=== PATIENT | female | born 1935 | race Caucasian/White ===

== ENCOUNTER 2016-10-02 18:30 | Inpatient (IN) | payer MEDICARE, OTHER ==
[~2016-10-02] VITALS: Ht 172.7 cm; Wt 54.5 kg
--- NOTE | ~2016-10-02 | CON ---
[place], [place] REPORT OF CONSULTATION NAME: JENISE PATEL [facility] [id number] UNIT #: [id number] ROOM: 524 DOCTOR: DANIELLE HUGHES ED.D (DAYA) BIRTHDATE: [birth year] DOS: 10/04/2016 HISTORY OF PRESENT ILLNESS: The patient is 81-year-old female referred by the hospitalist for evaluation of her depression. At the present time, this patient is on the 5th floor at [facility]. She states she is , and has 4 children. One of her sons does live with her here in [place]. Her family physician is Dr. Howe and her medical history is pertinent for acute anemia, hypertension, hypercholesterolemia, atrial fibrillation and chronic kidney disease and depression. MEDICATIONS: Include aspirin, hydrochlorothiazide, Lasix, pravastatin, and zolpidem. She denies any substance abuse issues whatsoever. This patient was awake, alert and oriented in all 3 spheres, but appeared to be quite depressed. She states at times she feels like she wants to , but will do nothing to harm herself, but wishes she would just go to sleep and not wake up. I talked to her about antidepressant medications, but she stated she did not want to take any additional medications because she was taking enough medications at this time. I strongly encouraged her to increase her activities as tolerated outside the home. During her last visit, she refused any physical therapy but this time, she did agree to physical therapy, which would help her significantly to increase her mobility. She states she worked for nearly 30 years at [employer] in [facility] and feels that at this point in time, she is not a contributing member of society. She did, however reassert the fact that she is not suicidal and will never do anything to harm herself. DIAGNOSIS: Major depressive disorder, single episode. RECOMMENDATIONS: 1. The patient to follow up with Physical Therapy as recommended by her physician. 2. The patient to increase her activities outside her home. Thank you very much for this consult. DANIELLE HUGHES ED.D CM:CONSTR:REPORT OF CONSULTATION 1357 10/04/16 1618 interface
--- NOTE | ~2016-10-02 | CON ---
[place], [place] REPORT OF CONSULTATION NAME: JENISE PATEL UNIT #: [id number] ROOM: 524 DOCTOR: ESTUARDO ROPER MD BIRTHDATE: [birth year] DOS: 10/03/2016 GASTROENDOSCOPIC CONSULTATION REPORT HISTORY OF PRESENT ILLNESS: An 81-year-old patient, who has presented to the Emergency Room with falling episode and unable to ambulate with ease. Legs are not strong enough to carry her, she says. Meanwhile, she has been found to have anemia and I have been asked for assessment of the patient in this regard. PAST MEDICAL HISTORY: Associated with failure to thrive, anemia, hypertension and hypercholesterolemia. PAST SURGICAL HISTORY: Hysterectomy and cataracts. SOCIAL HISTORY: Nonsmoker and nonalcohol consumer. ALLERGIES: To no known medications. MEDICATIONS LIST: Reviewed. REVIEW OF SYSTEMS: GENERAL: Cannot be obtained from her reliably; however, most of the answers are no. No shortness of breath, no chest pain, no hematemesis and no hematochezia. PHYSICAL EXAMINATION: GENERAL: A relatively-frail lady. HEENT: Within normal limits. NECK: Supple. No thyromegaly and no cervical lymphadenopathy. CHEST: Symmetric anatomy, decreased air entry bilaterally. HEART: Normal sinus rhythm. No gallop, no murmur. ABDOMEN: Soft. No hepato-organomegaly. Bowel sounds present. No pulsatile mass. EXTREMITIES: No cyanosis, no pedal edema. NEUROLOGIC: Alert and slow orientation. IMPRESSION: Labs reviewed. Records reviewed. It was found that her hemoglobin and hematocrit were 6 and 21, microcytic indices. Comprehensive metabolic panel: Elevated BUN and creatinine at 48 and 2.04. GFR is less than 28. Liver function test is normal. Chest x-ray, mild chronic calcification, bibasilar. CBC differential again reconfirms the pathology of severe anemia. PLAN AND DISCUSSION: We have sent a message to nursing staff and to the family. Apparently, they do not want the anemia investigated despite the fact that the patient is guaiac positive and has hemoglobin of 6. Comfort measures. IV hydration as hopefully the renal insufficiency is going to respond as well. We are going to provide a soft diet with Ensure 1 can t.i.d. with each meal. OTHER ADJUNCTIVE DIAGNOSES: As outlined in paragraph of past medical history, hypercholesterolemia, hypertension, dementia and failure to thrive; all have been recognized. Difficulty in ambulation is noticed. Supportive management. [place], [place] REPORT OF CONSULTATION NAME: JENISE PATEL UNIT #: [id number] ROOM: 524 DOCTOR: ESTUARDO ROPER MD BIRTHDATE: [birth year] ESTUARDO ROPER MD CM:CONSTR:REPORT OF CONSULTATION 0951 10/03/16 1745 interface
[2016-10-02 18:30] VITALS: BP 149/40
[~2016-10-02 18:30] MED LIST: ASPIRIN ADULT L81 M1 PO; AVANDARYL 4 MG-1 TAB; CALCIUM 600 + V1 TA1; CLOPIDOGREL75 MG PO; COREG CR20 MG; COZAAR25 MG; DILTIAZEM CD300 MG; ESIDRIX25 MG; HYDROCHLOROTHIA25 M1 PO; IRON325 M1 PO; LISINOPRIL10 M1 PO; LISINOPRIL2.5 MG PO; LISINOPRIL20 MG PO; METANX 2.8 MG-21 TA1; METFORMIN HCL500 MG; POTASSIUM20 MEQ; PRAVACHOL20 MG PO; PRINIVIL20 MG PO; ZITHROMAX250 MG PO; ZOLPIDEM10 MG PO
[2016-10-02 19:06] LABS: BASO % 0.2 % (0.0-1.0); EOS # 0.3 10*3/uL (0.0-0.4); EOS % 3.1 % (1.0-4.0); HEMATOCRIT 21.3 % (37.0-47.0); HEMOGLOBIN 6.3 g/dl (12.0-16.0); LYMPH # 0.9 10*3/uL (1.3-4.4); LYMPH % 10.7 % (27.0-41.0); MEAN CELL VOLUME 83.9 fl (81.0-99.0); MEAN CORPUSCULAR HGB 24.8 pg (27.0-31.0); MEAN CORPUSCULAR HGB CONC 29.6 g/dl (33.0-37.0); MEAN PLATELET VOLUME 11.1 fl (9.6-12.3); MONO # 0.9 10*3/uL (0.1-1.0); MONO % 10.4 % (3.0-9.0); NEUT # 6.6 10*3/uL (2.3-7.9); NEUT % 75.4 % (47.0-73.0); PLATELET COUNT AUTOMATED 201 10*3/uL (130-400); RED BLOOD COUNT 2.54 10*6/uL (4.10-5.10); RED CELL DISTRI WIDTH 18.7 % (0-14.5); WHITE BLOOD COUNT 8.8 10*3/uL (4.8-10.8)
[2016-10-02] MEDS ORDERED: ZOLPIDEM TART10 MG PO (19:10)
[2016-10-02] MEDS ORDERED: HYDROCHLOROTHIA25 M1 PO (19:10)
[2016-10-02 19:23] LABS: ALBUMIN 3.6 gm/dl (3.1-4.5); BILIRUBIN, TOTAL 0.4 mg/dl (0.2-1.0); POTASSIUM 4.8 mmol/L (3.5-5.1)
[2016-10-02 19:25] VITALS: BP 133/39
[2016-10-02 20:00] VITALS: BP 130/50
[2016-10-02 21:00] VITALS: BP 107/38
[2016-10-02 21:20] VITALS: BP 135/46
[2016-10-02 23:18] LABS: BILIRUBIN NEGATIVE (NEGATIVE); BLOOD 3+ (NEGATIVE); CLARITY CLOUDY (CLEAR); COLOR YELLOW (YELLOW); GLUCOSE NEGATIVE (NEGATIVE); KETONE NEGATIVE (NEGATIVE); LEUKO ESTERASE 1+ (NEGATIVE); NITRITE NEGATIVE (NEGATIVE); PROTEIN TRACE (NEGATIVE); SPECIFIC GRAVITY 1.015 (1.005-1.030); UROBILINOGEN 0.2 E.U./dl (0.2-1.0)
[2016-10-02 23:24] LABS: EPITHELIAL CELLS 15-20; WBC 31-40 wbc/hpf (0-5)
[2016-10-02 23:25] LABS: BACTERIA 4+; URINE REFLEX COMMENT YES (NO)
[2016-10-03] VITALS (13 sets, daily range): BP systolic 118–146; BP diastolic 40–68
[2016-10-03 00:35] LABS: TROPONIN I 0.033 ng/ml (<0.045)
[2016-10-03 06:42] LABS: BASO % 0.3 % (0.0-1.0); EOS # 0.1 10*3/uL (0.0-0.4); EOS % 1.8 % (1.0-4.0); HEMATOCRIT 20.3 % (37.0-47.0); LYMPH # 0.9 10*3/uL (1.3-4.4); MEAN CELL VOLUME 85.7 fl (81.0-99.0); MEAN CORPUSCULAR HGB 25.3 pg (27.0-31.0); MEAN CORPUSCULAR HGB CONC 29.6 g/dl (33.0-37.0); MEAN PLATELET VOLUME 10.9 fl (9.6-12.3); MONO # 0.8 10*3/uL (0.1-1.0); MONO % 11.2 % (3.0-9.0); NEUT # 5.3 10*3/uL (2.3-7.9); NEUT % 74.4 % (47.0-73.0); PLATELET COUNT AUTOMATED 183 10*3/uL (130-400); RED BLOOD COUNT 2.37 10*6/uL (4.10-5.10); RED CELL DISTRI WIDTH 18.7 % (0-14.5); WHITE BLOOD COUNT 7.1 10*3/uL (4.8-10.8)
[2016-10-03 06:56] LABS: TROPONIN I 0.031 ng/ml (<0.045)
[2016-10-03 07:03] LABS: FREE T4 1.23 ng/dl (0.76-1.46); THYROID STIM HORMONE (HS) 1.87 uIU/ml (0.358-4.75)
[2016-10-03 07:19] LABS: INTERNATIONAL NORM RATIO 1.1 (2.0-3.5); PROTHROMBIN TIME 11.5 SECONDS (9.0-12.4)
[2016-10-03 07:59] LABS: FOLIC ACID > 24.00 ng/mL (>5.38)
[2016-10-03 12:33] LABS: CKMB 4.2 ng/ml (0.5-3.6); TROPONIN I 0.029 ng/ml (<0.045)
[2016-10-04] VITALS: BP 122/50
[2016-10-04 06:29] LABS: BASO % 0.4 % (0.0-1.0); EOS # 0.2 10*3/uL (0.0-0.4); LYMPH # 0.8 10*3/uL (1.3-4.4); LYMPH % 10.3 % (27.0-41.0); MEAN CELL VOLUME 87.8 fl (81.0-99.0); MEAN CORPUSCULAR HGB 26.6 pg (27.0-31.0); MEAN CORPUSCULAR HGB CONC 30.3 g/dl (33.0-37.0); MEAN PLATELET VOLUME 10.8 fl (9.6-12.3); MONO # 0.7 10*3/uL (0.1-1.0); MONO % 9.8 % (3.0-9.0); NEUT # 5.8 10*3/uL (2.3-7.9); NEUT % 77.1 % (47.0-73.0); NUCLEATED RED BLOOD CELL 0.4 % (0.0-0.0); PLATELET COUNT AUTOMATED 181 10*3/uL (130-400); RED BLOOD COUNT 3.68 10*6/uL (4.10-5.10); RED CELL DISTRI WIDTH 17.7 % (0-14.5); WHITE BLOOD COUNT 7.5 10*3/uL (4.8-10.8)
[2016-10-04 06:35] LABS: HEMATOCRIT 32.3 % (37.0-47.0); HEMOGLOBIN 9.8 g/dl (12.0-16.0)
[2016-10-04 06:51] LABS: POTASSIUM 4.5 mmol/L (3.5-5.1)
[2016-10-04 08:00] VITALS: BP 122/52
[2016-10-04] MEDS ORDERED: IRON325 M1 PO (09:32)
[2016-10-04 12:00] VITALS: BP 144/58
[2016-10-04 16:00] VITALS: BP 122/46
[2016-10-04 20:00] VITALS: BP 148/54
[2016-10-05] VITALS: BP 122/47
[2016-10-05 08:00] VITALS: BP 126/58
[2016-10-05 12:00] VITALS: BP 138/55
[2016-10-05] MEDS ORDERED: PANTOPRAZOLE SO40 MG PO (14:13)
[2016-10-05] MEDS ORDERED: ACETAMINOPHEN-H1 TA2 PO (14:13)
== END 2016-10-05 15:54 | disposition home health service (06) | DRG 377 ==
LOC: ED 18:30 → 5E 20:50 → EDHOLD 20:50 → 5E 21:08
PROVIDERS: Internal Medicine; Registered Nurse
DX: K92.2 Gastrointestinal hemorrhage, unspecified (principal); N17.0 Acute kidney failure with tubular necrosis; N39.0 Urinary tract infection, site not specified; N18.3 Chronic kidney disease, stage 3 (moderate); E78.5 Hyperlipidemia, unspecified; I12.9 Hypertensive chronic kidney disease with stage 1 through stage 4 chronic kidney disease, or unspecified chronic kidney disease; W19.XXXA Unspecified fall, initial encounter; R00.1 Bradycardia, unspecified; R73.9 Hyperglycemia, unspecified; F32.9 Major depressive disorder, single episode, unspecified; E87.8 Other disorders of electrolyte and fluid balance, not elsewhere classified; E78.00 Pure hypercholesterolemia, unspecified; I48.91 Unspecified atrial fibrillation; R62.7 Adult failure to thrive; R91.8 Other nonspecific abnormal finding of lung field; D64.9 Anemia, unspecified; Y93.89 Activity, other specified; Y92.091 Bathroom in other non-institutional residence as the place of occurrence of the external cause; Y99.8 Other external cause status; Z90.710 Acquired absence of both cervix and uterus; Z98.51 Tubal ligation status; Z79.82 Long term (current) use of aspirin; Z79.899 Other long term (current) drug therapy; Z98.49 Cataract extraction status, unspecified eye

== ENCOUNTER 2016-10-14 23:15 | Inpatient (IN) | payer MEDICARE, OTHER ==
[~2016-10-14] VITALS: Ht 167.6 cm; Wt 60.4 kg
--- NOTE | ~2016-10-14 | EKG ---
[place], [place] ELECTROCARDIOGRAM REPORT NAME: JENISE PATEL UNIT #: [id number] ROOM: 419 DOCTOR: SRAVAN HODGE MD BIRTHDATE: [birth year] DOS: 10/15/2016 TIME: 23:56. Atrial fibrillation with slow ventricular response, poor precordial R-wave progression, non-specific T-wave abnormalities. SRAVAN HODGE MD CM:EKGRPT:ELECTROCARDIOGRAM REPORT 1107 1146 SRAVAN HODGE MD
--- NOTE | ~2016-10-14 | EKG ---
[place], [place] ELECTROCARDIOGRAM REPORT NAME: JENISE PATEL UNIT #: [id number] ROOM: 419 DOCTOR: SRAVAN HODGE MD BIRTHDATE: [birth year] DOS: 10/15/2016 TIME: 07:30 a.m. Atrial fibrillation, poor precordial R-wave progression, non-specific T-wave abnormality, slow heart rate response, ____ abnormal electrocardiogram. SRAVAN HODGE MD CM:EKGRPT:ELECTROCARDIOGRAM REPORT 1107 1139 SRAVAN HODGE MD
--- NOTE | ~2016-10-14 | CON ---
[place], [place] REPORT OF CONSULTATION [id number] UNIT #: [id number] ROOM: 419 DOCTOR: SRAVAN HODGE MD BIRTHDATE: [birth year] DOS: 10/15/2016 REASON FOR CONSULTATION: Hypotension and dyspnea with atypical chest pain. HISTORY OF PRESENT ILLNESS: The patient is an 81-year-old woman who does have a long history of atrial fibrillation. She initially presented in May of 2011 with shortness of breath, facial asymmetry, and difficulty with speech. She was found to have a right basal ganglion stroke. She was in atrial fibrillation at that time and it was felt that the stroke was cardioembolic in origin. She was evaluated by Dr. Alexander Martin of the [facility], who noted that her heart rate was 59, even though she was not on any heart rate slowing medications. The patient declined transfer to a tertiary care center. Initially, she declined anticoagulation, but eventually was discharged on warfarin. This has subsequently been stopped. Please note that the patient is a totally inadequate historian and all of my information is obtained from nursing staff and the medical record. No family is available at this time. The patient has been in and out of the hospital on several occasions since then. She has been noted to have severe anemia. Hemoglobin was as low as 5.4 on 05/30/2016 and again was as low as 6.0 on 10/03/2016. The patient was evaluated by Dr. Campos who found heme-positive stools. The patient declined requests to evaluate her for a source of blood loss. She has received transfusions. She has also been seen by Psychiatry and is known to have severe depression. She has refused treatment for this. She does, however, indicate that she is not suicidal. She presented to the Emergency Room on this occasion late last evening with a sensation that she was dehydrated and was voiding more than she could drink. She did complain at the time of being very tired. Hemoglobin on admission was 9.4 and now is 8.1. She was given IV fluids, but has deteriorated since then. In the hospital, she has been noted to be bradycardic. Heart rates have been measured in the 30s. She was hypotensive as well. She has complained of left upper quadrant and left lower chest pain. She also has complained of cough and dyspnea. Because of her bradycardia, Cardiology was consulted. PAST MEDICAL HISTORY: Includes: 1. Presentation with basal ganglion stroke, 05/2011. 2. Atrial fibrillation with slow ventricular response, first documented 05/24/2011. The patient was not on any rate slowing medications at that time, but her heart rate was 59. 3. Essential hypertension. 4. Anxiety and depression. 5. History of medication noncompliance. 6. History of acute pancreatitis in 2006. 7. History of pneumonia in the distant past. 8. History of recurrent anemia. The patient's hemoglobin on 05/30/2016 was 5.4 with heme-positive stools. The patient declined evaluation. [place], [place] REPORT OF CONSULTATION NAME: JENISE PATEL UNIT #: [id number] ROOM: [facility] DOCTOR: SRAVAN HODGE MD BIRTHDATE: [birth year] MEDICATIONS: Prior to admission, clopidogrel 75 mg daily, hydrochlorothiazide 25 mg daily, [place] 5/325 one q. 4 hours p.r.n. back pain, lisinopril 10 mg per day, pantoprazole 40 mg per day, pravastatin 20 mg daily, and Ambien 10 mg at bedtime p.r.n. ALLERGIES: She has no known drug allergies. REVIEW OF SYSTEMS: The patient cannot give an adequate review of systems at this time. Her speech is garbled. She is hard of hearing. She denies chest pain, but does admit to a jabbing in her left upper quadrant or left lower chest area. FAMILY HISTORY: Both parents are . There is no available family history aside from that. SOCIAL HISTORY: The patient lives with family. She does not smoke or consume alcohol. PHYSICAL EXAMINATION: GENERAL: The patient is an elderly white female who is awake and alert. It is difficult to determine her level of orientation. She is lying almost flat in bed with oxygen in place. VITAL SIGNS: Pulse is 63 and irregularly irregular. Blood pressure is 130/112. Oxygen saturation is 98% with supplemental oxygen. She weighs 60.4 kg and has a body mass index of 21.5. HEENT: Normocephalic and atraumatic. Extraocular muscles are intact. Her oral mucosa is moist. Tongue is midline. NECK: Supple. She does have jugular distention to the angle of then jaw when lying at a 30-degree angle. Carotids are full. I heard no bruits. LUNGS: Respirations are somewhat labored. She has decreased breath sounds at the bases and basilar rales. CARDIOVASCULAR: Her heart has an irregularly irregular rhythm. She does have a grade 3/6 holosystolic murmur at the lower left sternal border radiating well into the axilla. No diastolic murmurs are present. The PMI is displaced slightly laterally. There is no precordial heave, lift, or thrill. ABDOMEN: Soft and normally active. There is no mass or tenderness. EXTREMITIES: Showed 2+ edema at the ankles. Pedal pulses were diminished, but palpable in the feet. LABORATORY DATA: I reviewed her electrocardiogram. It showed atrial fibrillation with a slow ventricular response. Heart rate was 43 despite the fact that she was on no rate slowing medications. She does have poor precordial R-wave progression and nonspecific T-wave flattening. Chest x-ray shows cardiomegaly with enlargement of the left cardiac border suggesting left atrial enlargement. She does have bilateral pleural effusions and pulmonary vascular congestion. White count is 6300, hemoglobin is 8.1, hematocrit 27.8, platelet count is 146,000. Sodium is 145, potassium 3.8, chloride 111, CO2 of 27, BUN 18, creatinine 0.96, calcium is 8.2 consistent with her albumin level of 3.0. MB is elevated at 5.3, but total CK has not been [place], [place] REPORT OF CONSULTATION NAME: JENISE PATEL UNIT #: [id number] ROOM: 419 DOCTOR: SRAVAN HODGE MD BIRTHDATE: [birth year] obtained. Troponin is measurable, but within normal limits at 0.031. TSH is normal at 1.68. IMPRESSION: 1. Conduction system disorder. The patient has a long history of atrial fibrillation with a slow ventricular response. In the hospital now, she has had a heart rate as low as mid 30s, but she did respond nicely to atropine. 2. Acute on chronic congestive heart failure, etiology not yet known. 3. Valvular heart disease. The patient does have mitral insufficiency on exam with an apparent enlarged left atrium on her chest x-ray. 4. Adult failure to thrive. 5. Persistent anemia with hemoglobins recently as low as 6. The patient does apparently have gastrointestinal blood loss, but has refused evaluation. 6. History of stroke from a cardioembolic source. The patient is not on long-term anticoagulation per her choice as far as I can tell from the chart. 7. History of depression. PLAN: We will diurese the patient. We will continue to monitor her. If her heart rate should fall again, I would put her on a dobutamine drip and titrate this to keep her heart rate above 60. I think that a long and sherman discussion has to be held with the patient and her family regarding long-term care goals. The patient has a history of refusing medical evaluation and care. She might feel better long-term once her other medical problems have been stabilized if she were to have a pacemaker placed; however, this does not appear to be her most acute problem at present, and if she is not willing or able to correct her other medical problems, then a pacemaker would not change her ultimate prognosis. For now, we will proceed as noted above and await further direction from her primary physicians and family. I thank the hospitalist group for asking our advice regarding her care. SRAVAN HODGE MD CM:CONSTR:REPORT OF CONSULTATION 0924 10/15/16 1033 interface
--- NOTE | ~2016-10-14 | EKG ---
[place], [place] ELECTROCARDIOGRAM REPORT NAME: JENISE PATEL UNIT #: [id number] ROOM: 419 DOCTOR: SRAVAN HODGE MD BIRTHDATE: [birth year] DOS: 10/15/2016 TIME: 12:31 a.m. Atrial fibrillation with controlled ventricular response, right axis deviation, poor precordial R-wave progression, non-specific ST-T wave changes, abnormal electrocardiogram. SRAVAN HODGE MD CM:EKGRPT:ELECTROCARDIOGRAM REPORT 1107 1149 SRAVAN HODGE MD
[~2016-10-14 23:15] MED LIST changes: +ACETAMINOPHEN-H1 TA2 PO; +PANTOPRAZOLE SO40 MG PO; +ZOLPIDEM TART10 MG PO
[2016-10-14 23:24] VITALS: BP 159/76
[2016-10-14] MEDS ORDERED: AMBIEN10 M1 PO (23:30)
[2016-10-14] MEDS ORDERED: HYDR25T PO (23:30)
[2016-10-14] MEDS ORDERED: PLAVIX75 M1 PO (23:31)
[2016-10-14] MEDS ORDERED: LISINOPRIL10 M1 PO (23:31)
[2016-10-15] VITALS (8 sets, daily range): BP systolic 119–167; BP diastolic 40–72
[2016-10-15 00:12] LABS: BASO % 0.3 % (0.0-1.0); EOS # 0.1 10*3/uL (0.0-0.4); EOS % 1.5 % (1.0-4.0); HEMATOCRIT 31.8 % (37.0-47.0); HEMOGLOBIN 9.4 g/dl (12.0-16.0); LYMPH # 0.9 10*3/uL (1.3-4.4); LYMPH % 11.8 % (27.0-41.0); MEAN CELL VOLUME 89.6 fl (81.0-99.0); MEAN CORPUSCULAR HGB 26.5 pg (27.0-31.0); MEAN CORPUSCULAR HGB CONC 29.6 g/dl (33.0-37.0); MEAN PLATELET VOLUME 12.1 fl (9.6-12.3); MONO # 0.6 10*3/uL (0.1-1.0); MONO % 8.5 % (3.0-9.0); NEUT # 5.9 10*3/uL (2.3-7.9); NEUT % 77.6 % (47.0-73.0); PLATELET COUNT AUTOMATED 206 10*3/uL (130-400); RED BLOOD COUNT 3.55 10*6/uL (4.10-5.10); RED CELL DISTRI WIDTH 21.8 % (0-14.5); WHITE BLOOD COUNT 7.5 10*3/uL (4.8-10.8)
[2016-10-15 01:22] LABS: ALKALINE PHOSPHATASE 125 U/L (45-117); BILIRUBIN, TOTAL 0.6 mg/dl (0.2-1.0); BUN 18 mg/dl (7-24); CARBON DIOXIDE 26 mmol/L (21-32); CHLORIDE 109 mmol/L (98-107); EST GLOM FILT AFRICAN AMERICAN > 60 ml/min; GLUCOSE 99 mg/dL (65-99); POTASSIUM 4.2 mmol/L (3.5-5.1); SGOT/AST 16 IU/L (3-35); SGPT/ALT 15 U/L (12-78); SODIUM 143 mmol/L (136-145); TOTAL PROTEIN 5.9 gm/dL (6.4-8.2); TROPONIN I 0.033 ng/ml (<0.045)
[2016-10-15 01:28] LABS: BILIRUBIN NEGATIVE (NEGATIVE); BLOOD TRACE-LYSED (NEGATIVE); CLARITY CLEAR (CLEAR); COLOR YELLOW (YELLOW); GLUCOSE NEGATIVE (NEGATIVE); KETONE NEGATIVE (NEGATIVE); LEUKO ESTERASE NEGATIVE (NEGATIVE); NITRITE NEGATIVE (NEGATIVE); PH 5.5 (5.0-9.0); PROTEIN NEGATIVE (NEGATIVE); UROBILINOGEN 0.2 E.U./dl (0.2-1.0)
[2016-10-15 01:44] LABS: BACTERIA 2+; EPITHELIAL CELLS 0-2; WBC 0-2 wbc/hpf (0-5)
[2016-10-15 01:45] LABS: URINE REFLEX COMMENT YES (NO)
[2016-10-15] MEDS ORDERED: VICODIN 5-3001 EACH PO (02:28)
[2016-10-15] MEDS ORDERED: NORCO 5-325 TA1 EACH PO (03:10)
[2016-10-15 06:07] LABS: TROPONIN I 0.031 ng/ml (<0.045)
[2016-10-15 06:19] LABS: CKMB 5.3 ng/ml (0.5-3.6)
[2016-10-15 06:28] LABS: BUN 18 mg/dl (7-24); CARBON DIOXIDE 27 mmol/L (21-32); CHLORIDE 111 mmol/L (98-107); EST GLOM FILT AFRICAN AMERICAN > 60 ml/min; GLUCOSE 98 mg/dL (65-99); POTASSIUM 3.8 mmol/L (3.5-5.1); SODIUM 145 mmol/L (136-145)
[2016-10-15 06:31] LABS: INTERNATIONAL NORM RATIO 1.2 (2.0-3.5); PROTHROMBIN TIME 12.6 SECONDS (9.0-12.4)
[2016-10-15 06:37] LABS: FREE T4 1.43 ng/dl (0.76-1.46)
[2016-10-15 06:39] LABS: BASO % 0.6 % (0.0-1.0); EOS # 0.1 10*3/uL (0.0-0.4); EOS % 1.6 % (1.0-4.0); HEMATOCRIT 27.8 % (37.0-47.0); HEMOGLOBIN 8.1 g/dl (12.0-16.0); LYMPH # 0.7 10*3/uL (1.3-4.4); LYMPH % 11.2 % (27.0-41.0); MEAN CELL VOLUME 91.1 fl (81.0-99.0); MEAN CORPUSCULAR HGB 26.6 pg (27.0-31.0); MEAN CORPUSCULAR HGB CONC 29.1 g/dl (33.0-37.0); MEAN PLATELET VOLUME 11.5 fl (9.6-12.3); MONO # 0.5 10*3/uL (0.1-1.0); MONO % 8.6 % (3.0-9.0); NEUT # 4.9 10*3/uL (2.3-7.9); NEUT % 77.7 % (47.0-73.0); PLATELET COUNT AUTOMATED 146 10*3/uL (130-400); RED BLOOD COUNT 3.05 10*6/uL (4.10-5.10); RED CELL DISTRI WIDTH 21.4 % (0-14.5); WHITE BLOOD COUNT 6.3 10*3/uL (4.8-10.8)
[2016-10-15 08:46] LABS: FOLIC ACID 14.22 ng/mL (>5.38)
[2016-10-15 10:09] LABS: HEMOGLOBIN A1c 5.4 % (4.8-5.6)
[2016-10-16] VITALS: BP 144/72
[2016-10-16 05:54] LABS: BASO # 0.1 10*3/uL (0.0-0.1); BASO % 0.5 % (0.0-1.0); EOS # 0.1 10*3/uL (0.0-0.4); EOS % 1.3 % (1.0-4.0); HEMATOCRIT 30.8 % (37.0-47.0); HEMOGLOBIN 8.8 g/dl (12.0-16.0); IG # 0.1 10*3/uL (0.0-0.1); LYMPH # 0.7 10*3/uL (1.3-4.4); LYMPH % 7.3 % (27.0-41.0); MEAN CELL VOLUME 91.4 fl (81.0-99.0); MEAN CORPUSCULAR HGB 26.1 pg (27.0-31.0); MEAN CORPUSCULAR HGB CONC 28.6 g/dl (33.0-37.0); MEAN PLATELET VOLUME 11.7 fl (9.6-12.3); MONO # 0.6 10*3/uL (0.1-1.0); MONO % 6.7 % (3.0-9.0); NEUT % 83.6 % (47.0-73.0); PLATELET COUNT AUTOMATED 156 10*3/uL (130-400); RED BLOOD COUNT 3.37 10*6/uL (4.10-5.10); RED CELL DISTRI WIDTH 21.3 % (0-14.5); WHITE BLOOD COUNT 9.6 10*3/uL (4.8-10.8)
[2016-10-16 08:00] VITALS: BP 149/58
[2016-10-16 12:00] VITALS: BP 143/55
[2016-10-16 16:00] VITALS: BP 149/64
[2016-10-16 20:00] VITALS: BP 102/68
[2016-10-17] VITALS: BP 124/50
[2016-10-17 04:33] LABS: BILIRUBIN NEGATIVE (NEGATIVE); BLOOD 3+ (NEGATIVE); CLARITY SL CLOUDY (CLEAR); COLOR YELLOW (YELLOW); GLUCOSE NEGATIVE (NEGATIVE); KETONE NEGATIVE (NEGATIVE); LEUKO ESTERASE TRACE (NEGATIVE); NITRITE NEGATIVE (NEGATIVE); PROTEIN 1+ (NEGATIVE); SPECIFIC GRAVITY 1.025 (1.005-1.030); UROBILINOGEN 0.2 E.U./dl (0.2-1.0)
[2016-10-17 04:38] LABS: RBC 41-50 rbc/hpf (0-2)
[2016-10-17 04:44] LABS: BACTERIA TRACE; URINE REFLEX COMMENT YES (NO)
[2016-10-17 06:41] LABS: BUN 24 mg/dl (7-24); CARBON DIOXIDE 27 mmol/L (21-32); CHLORIDE 110 mmol/L (98-107); EST GLOM FILT AFRICAN AMERICAN > 60 ml/min; GLUCOSE 89 mg/dL (65-99); POTASSIUM 4.1 mmol/L (3.5-5.1); SODIUM 148 mmol/L (136-145)
[2016-10-17 08:00] VITALS: BP 134/50
[2016-10-17 12:00] VITALS: BP 154/61
[2016-10-17 16:00] VITALS: BP 155/61
[2016-10-17 20:00] VITALS: BP 157/51
[2016-10-18] VITALS: BP 158/64
[2016-10-18 04:00] VITALS: BP 158/64
[2016-10-18 09:00] VITALS: BP 163/64
[2016-10-18 12:00] VITALS: BP 153/62
[2016-10-18] MEDS ORDERED: ZOFRAN ODT4 MG SL (13:09)
[2016-10-18] MEDS ORDERED: MORPHINE S10 MG/5 M2 PO (13:09)
[2016-10-18] MEDS ORDERED: ATROPINE 1% OPHT5 M1 SL (13:09)
[2016-10-18] MEDS ORDERED: ATIVAN1 MG PO (13:09)
== END 2016-10-18 14:46 | disposition hospice, home (50) | DRG 291 ==
LOC: ED 23:15 → 4E 10-15 00:53 → ICCU 10-15 00:53 → 4E 10-15 10:26
PROVIDERS: Emergency Medicine Emergency Medical Services; Internal Medicine; Student in an Organized Health Care Education/Training Program
DX: I13.0 Hypertensive heart and chronic kidney disease with heart failure and stage 1 through stage 4 chronic kidney disease, or unspecified chronic kidney disease (principal); J96.00 Acute respiratory failure, unspecified whether with hypoxia or hypercapnia; G93.41 Metabolic encephalopathy; E44.0 Moderate protein-calorie malnutrition; I48.0 Paroxysmal atrial fibrillation; I38 Endocarditis, valve unspecified; N18.3 Chronic kidney disease, stage 3 (moderate); R62.7 Adult failure to thrive; F32.9 Major depressive disorder, single episode, unspecified; I50.9 Heart failure, unspecified; R35.8 Other polyuria; E78.5 Hyperlipidemia, unspecified; F41.9 Anxiety disorder, unspecified; D64.9 Anemia, unspecified; Z98.51 Tubal ligation status; Z79.899 Other long term (current) drug therapy; Z86.73 Personal history of transient ischemic attack (TIA), and cerebral infarction without residual deficits; Z87.01 Personal history of pneumonia (recurrent); Z91.19 Patient's noncompliance with other medical treatment and regimen; Z68.21 Body mass index [BMI] 21.0-21.9, adult

== ENCOUNTER 2016-10-24 19:53 | Inpatient (IN) | payer MEDICARE, OTHER ==
[~2016-10-24] VITALS: Ht 170.1 cm; Wt 63.8 kg
--- NOTE | ~2016-10-24 | EKG ---
[place], [place] ELECTROCARDIOGRAM REPORT NAME: JENISE PATEL UNIT #: [id number] ROOM: 412 DOCTOR: SRAVAN HODGE MD BIRTHDATE: [birth year] DOS: 10/24/2016 TIME: 2039 hours. FINDINGS: 1. Atrial fibrillation with slow ventricular response (approximately 50 beats per minute). 2. Anterior lateral infarction which appears to be old. 3. T-U fusion noted. 4. Abnormal electrocardiogram. SRAVAN HODGE MD CM:EKGRPT:ELECTROCARDIOGRAM REPORT 1735 19 SRAVAN HODGE MD
[~2016-10-24 19:53] MED LIST changes: +AMBIEN10 M1 PO; +ATIVAN1 MG PO; +ATROPINE 1% OPHT5 M1 SL; +HYDR25T PO; +MORPHINE S10 MG/5 M2 PO; +NORCO 5-325 TA1 EACH PO; +PLAVIX75 M1 PO; +VICODIN 5-3001 EACH PO; +ZOFRAN ODT4 MG SL
[2016-10-24 19:55] VITALS: BP 175/67
[2016-10-24] MEDS ORDERED: LEXAPRO10 MG PO (20:11)
[2016-10-24 20:30] VITALS: BP 185/95
[2016-10-24 20:42] LABS: BASO % 0.4 % (0.0-1.0); EOS % 0.8 % (1.0-4.0); LYMPH # 0.9 10*3/uL (1.3-4.4); LYMPH % 16.5 % (27.0-41.0); MEAN CELL VOLUME 88.6 fl (81.0-99.0); MEAN CORPUSCULAR HGB 25.7 pg (27.0-31.0); MEAN PLATELET VOLUME 10.7 fl (9.6-12.3); MONO # 0.5 10*3/uL (0.1-1.0); MONO % 10.1 % (3.0-9.0); NEUT # 3.8 10*3/uL (2.3-7.9); NEUT % 71.8 % (47.0-73.0); PLATELET COUNT AUTOMATED 140 10*3/uL (130-400); RED CELL DISTRI WIDTH 21.3 % (0-14.5); WHITE BLOOD COUNT 5.3 10*3/uL (4.8-10.8)
[2016-10-24 20:58] LABS: ALKALINE PHOSPHATASE 121 U/L (45-117); BILIRUBIN, TOTAL 0.8 mg/dl (0.2-1.0); BUN 16 mg/dl (7-24); C-REACTIVE PROTEIN 0.41 MG/DL (0-0.3); CARBON DIOXIDE 26 mmol/L (21-32); CHLORIDE 110 mmol/L (98-107); EST GLOM FILT AFRICAN AMERICAN > 60 ml/min; GLUCOSE 88 mg/dL (65-99); POTASSIUM 4.6 mmol/L (3.5-5.1); SGOT/AST 23 IU/L (3-35); SGPT/ALT 13 U/L (12-78); SODIUM 144 mmol/L (136-145); TOTAL PROTEIN 5.9 gm/dL (6.4-8.2); TROPONIN I 0.034 ng/ml (<0.045)
[2016-10-24 21:00] VITALS: BP 165/62
[2016-10-24 21:10] LABS: BILIRUBIN NEGATIVE (NEGATIVE); BLOOD 3+ (NEGATIVE); CLARITY TURBID (CLEAR); COLOR RED (YELLOW); GLUCOSE NEGATIVE (NEGATIVE); KETONE 1+ (NEGATIVE); LEUKO ESTERASE 1+ (NEGATIVE); NITRITE POSITIVE (NEGATIVE); PH 6.5 (5.0-9.0); PROTEIN 3+ (NEGATIVE); SPECIFIC GRAVITY 1.025 (1.005-1.030)
[2016-10-24 21:19] LABS: BACTERIA 4+; EPITHELIAL CELLS 0-2; RBC TNTC rbc/hpf (0-2); URINE REFLEX COMMENT YES (NO); WBC TNTC wbc/hpf (0-5)
[2016-10-24 21:30] VITALS: BP 174/66
[2016-10-24 22:00] VITALS: BP 165/66
[2016-10-25] VITALS: BP 142/61
[2016-10-25 08:00] VITALS: BP 158/51
[2016-10-25 12:00] VITALS: BP 151/63
[2016-10-25 16:00] VITALS: BP 151/56
[2016-10-25 20:00] VITALS: BP 157/62
[2016-10-26] VITALS: BP 148/66
[2016-10-26 06:14] LABS: BASO % 0.6 % (0.0-1.0); EOS # 0.1 10*3/uL (0.0-0.4); EOS % 2.2 % (1.0-4.0); HEMATOCRIT 30.9 % (37.0-47.0); HEMOGLOBIN 8.7 g/dl (12.0-16.0); LYMPH # 0.6 10*3/uL (1.3-4.4); LYMPH % 11.4 % (27.0-41.0); MEAN CELL VOLUME 90.9 fl (81.0-99.0); MEAN CORPUSCULAR HGB 25.6 pg (27.0-31.0); MEAN CORPUSCULAR HGB CONC 28.2 g/dl (33.0-37.0); MEAN PLATELET VOLUME 10.8 fl (9.6-12.3); MONO # 0.6 10*3/uL (0.1-1.0); NEUT # 3.7 10*3/uL (2.3-7.9); NEUT % 74.4 % (47.0-73.0); PLATELET COUNT AUTOMATED 120 10*3/uL (130-400); RED CELL DISTRI WIDTH 20.9 % (0-14.5)
[2016-10-26 06:41] LABS: BUN 14 mg/dl (7-24); CARBON DIOXIDE 29 mmol/L (21-32); CHLORIDE 111 mmol/L (98-107); EST GLOM FILT AFRICAN AMERICAN > 60 ml/min; GLUCOSE 90 mg/dL (65-99); POTASSIUM 4.1 mmol/L (3.5-5.1); SODIUM 144 mmol/L (136-145)
[2016-10-26 08:00] VITALS: BP 160/56
[2016-10-26 12:00] VITALS: BP 147/65
[2016-10-26 16:00] VITALS: BP 168/61
[2016-10-26 20:00] VITALS: BP 175/72
[2016-10-27] VITALS: BP 169/72
[2016-10-27 09:00] VITALS: BP 168/66
[2016-10-27 12:00] VITALS: BP 161/84
[2016-10-27 16:00] VITALS: BP 177/67
[2016-10-27 20:00] VITALS: BP 176/61
[2016-10-28] VITALS: BP 151/71
[2016-10-28 08:00] VITALS: BP 145/80
[2016-10-28 12:00] VITALS: BP 149/81
[2016-10-28 16:00] VITALS: BP 142/79; BP 145/59
[2016-10-28 20:00] VITALS: BP 142/84
[2016-10-29] VITALS: BP 113/77
[2016-10-29 06:56] LABS: BUN 21 mg/dl (7-24); EST GLOM FILT AFRICAN AMERICAN > 60 ml/min
[2016-10-29 08:00] VITALS: BP 156/86
[2016-10-29] MEDS ORDERED: LISINOPRIL20 MG PO (10:43)
[2016-10-29] MEDS ORDERED: LEVAQUIN750 M1 PO (10:43)
[2016-10-29] MEDS ORDERED: ZOFRAN ODT4 MG SL (10:43)
[2016-10-29 12:00] VITALS: BP 150/65
[2016-10-29 16:00] VITALS: BP 168/65
[2016-10-29 20:00] VITALS: BP 158/49
[2016-10-30] VITALS: BP 162/62
[2016-10-30 08:00] VITALS: BP 166/66
[2016-10-30 12:00] VITALS: BP 158/72
[2016-10-30 16:00] VITALS: BP 183/73
[2016-10-30 20:00] VITALS: BP 147/66
[2016-10-31] VITALS: BP 157/69
[2016-10-31 07:08] LABS: BASO % 0.5 % (0.0-1.0); EOS # 0.2 10*3/uL (0.0-0.4); EOS % 2.9 % (1.0-4.0); HEMATOCRIT 32.8 % (37.0-47.0); HEMOGLOBIN 9.5 g/dl (12.0-16.0); LYMPH # 0.7 10*3/uL (1.3-4.4); LYMPH % 9.3 % (27.0-41.0); MEAN CELL VOLUME 86.5 fl (81.0-99.0); MEAN CORPUSCULAR HGB 25.1 pg (27.0-31.0); MEAN PLATELET VOLUME 10.2 fl (9.6-12.3); MONO # 0.7 10*3/uL (0.1-1.0); MONO % 8.6 % (3.0-9.0); NEUT % 78.3 % (47.0-73.0); PLATELET COUNT AUTOMATED 104 10*3/uL (130-400); RED BLOOD COUNT 3.79 10*6/uL (4.10-5.10); RED CELL DISTRI WIDTH 21.3 % (0-14.5); WHITE BLOOD COUNT 7.7 10*3/uL (4.8-10.8)
[2016-10-31 07:17] LABS: BUN 13 mg/dl (7-24); CARBON DIOXIDE 33 mmol/L (21-32); CHLORIDE 109 mmol/L (98-107); EST GLOM FILT AFRICAN AMERICAN > 60 ml/min; GLUCOSE 104 mg/dL (65-99); SODIUM 153 mmol/L (136-145)
[2016-10-31 08:00] VITALS: BP 160/72
[2016-10-31 16:00] VITALS: BP 135/48
[2016-10-31 20:00] VITALS: BP 153/57
[2016-11-01] VITALS: BP 153/57
[2016-11-01 06:14] LABS: HEMATOCRIT 30.1 % (37.0-47.0); HEMOGLOBIN 8.6 g/dl (12.0-16.0); MEAN CORPUSCULAR HGB 24.9 pg (27.0-31.0); MEAN CORPUSCULAR HGB CONC 28.6 g/dl (33.0-37.0); MEAN PLATELET VOLUME 10.3 fl (9.6-12.3); PLATELET COUNT AUTOMATED 106 10*3/uL (130-400); RED BLOOD COUNT 3.46 10*6/uL (4.10-5.10); RED CELL DISTRI WIDTH 21.7 % (0-14.5); WHITE BLOOD COUNT 7.9 10*3/uL (4.8-10.8)
[2016-11-01 06:24] LABS: RETICULOCYTE % 1.18 % (0.50-2.50)
[2016-11-01 06:25] LABS: IRF 15.7 % (2.4-13.3); RET-He 18.7 pg (32.1-37.9)
[2016-11-01 06:41] LABS: BUN 13 mg/dl (7-24); CARBON DIOXIDE 38 mmol/L (21-32); CHLORIDE 108 mmol/L (98-107); EST GLOM FILT AFRICAN AMERICAN > 60 ml/min; GLUCOSE 97 mg/dL (65-99); IRON 28 ug/dL (50-170); POTASSIUM 2.9 mmol/L (3.5-5.1); SODIUM 151 mmol/L (136-145)
[2016-11-01 06:48] LABS: BASOPHIL # 0.1 10*3/uL (0-0.1); BASOPHILS 1 % (0-1); EOSINOPHIL # 0.2 10*3/uL (0-0.4); EOSINOPHILS 2 % (1-4); HYPOCHROMIA SLIGHT; LYMPHOCYTE # 0.7 10*3/uL (1.3-4.4); MICROCYTOSIS SLIGHT; MONOCYTE # 0.1 10*3/uL (0.1-1.0); NEUTROPHIL # 6.9 10*3/uL (2.3-7.9); NEUTROPHILS 87 % (47-73); PLATELET SUFFICIENCY LOW (NORMAL); POLYCHROMASIA SLIGHT; SCHISTOCYTES FEW; TOTAL CELLS COUNTED 100 #CELLS
[2016-11-01 07:30] LABS: FERRITIN 24.1 ng/mL (10.0-291.0)
[2016-11-01 07:31] LABS: FOLIC ACID 5.07 ng/mL (>5.38)
[2016-11-01 08:00] VITALS: BP 169/79
[2016-11-01 12:00] VITALS: BP 157/71
[2016-11-01 16:00] VITALS: BP 165/83
== END 2016-11-01 20:34 | disposition other institution (70) | DRG 177 ==
LOC: ED 19:53 → EDHOLD 21:37 → 4E 21:37
PROVIDERS: Emergency Medicine Emergency Medical Services; Family Medicine; Hospitalist; Internal Medicine
DX: J69.0 Pneumonitis due to inhalation of food and vomit (principal); N17.0 Acute kidney failure with tubular necrosis; E44.0 Moderate protein-calorie malnutrition; K92.2 Gastrointestinal hemorrhage, unspecified; J90 Pleural effusion, not elsewhere classified; I48.91 Unspecified atrial fibrillation; R00.1 Bradycardia, unspecified; R71.0 Precipitous drop in hematocrit; E86.0 Dehydration; I12.9 Hypertensive chronic kidney disease with stage 1 through stage 4 chronic kidney disease, or unspecified chronic kidney disease; N39.0 Urinary tract infection, site not specified; R62.7 Adult failure to thrive; R91.8 Other nonspecific abnormal finding of lung field; E78.5 Hyperlipidemia, unspecified; N18.3 Chronic kidney disease, stage 3 (moderate); Z86.73 Personal history of transient ischemic attack (TIA), and cerebral infarction without residual deficits; Z98.51 Tubal ligation status; Z79.899 Other long term (current) drug therapy; Z68.21 Body mass index [BMI] 21.0-21.9, adult